=== PATIENT | male | born 1955 | race African-American/Black ===

== ENCOUNTER 2022-04-30 04:52 | Emergency (ER) | payer MEDICARE, MEDICAID ==
[~2022-04-30] VITALS: Ht 172.7 cm; Wt 79.0 kg
[2022-04-30] MEDS ORDERED: KETOROLAC 30MG/ML VIAL IV STA (05:54)
[2022-04-30] MEDS ORDERED: METOCLOPRAMIDE HCL 10MG/2ML VIAL IV ONE (06:00)
[2022-04-30] MEDS ORDERED: SODIUM CHLORIDE 0.9% 1,000 ML IV ONE (06:00)
[2022-04-30 06:34] VITALS: BP 126/76
[2022-04-30] MEDS ORDERED: TOPUD PO (07:21)
== END 2022-04-30 08:11 | disposition home or self-care (01) ==
LOC: ER 04:52
DX: R51.9 Headache, unspecified (principal); I48.91 Unspecified atrial fibrillation; J40 Bronchitis, not specified as acute or chronic; J44.9 Chronic obstructive pulmonary disease, unspecified
CPT/HCPCS: 71045; 93005; 96361; 96374; 96375; 99284; J1885; J2765; J7030